=== PATIENT | male | born 1970 | race Caucasian/White ===

== ENCOUNTER 2020-07-15 14:49 | Outpatient (CLI) | payer BC, OTHER ==
[~2020-07-15 14:49] MED LIST: Iopamidol 370 76% 100 ML VIAL ONE
== END 2020-07-15 14:50 | disposition home or self-care (01) ==
LOC: BICCT 14:49
PROVIDERS: ATTEND Physician Assistant
DX: R10.32 Left lower quadrant pain (principal); Q60.0 Renal agenesis, unilateral; N28.81 Hypertrophy of kidney; N28.9 Disorder of kidney and ureter, unspecified
CPT/HCPCS: 74177; Q9967